=== PATIENT | female | born 1945 | race African-American/Black ===

== ENCOUNTER 2023-02-13 03:19 | Inpatient (IN) | payer MEDICARE, MEDICAID ==
[2023-02-13] MEDS ORDERED: Pantoprazole 40 MG VIAL ONE (03:50)
[2023-02-13 04:42] LABS: #Eosinphils 0.2 thou/uL (0.0-0.7); #Monocytes 0.6 thou/uL (0.11-0.59); #Neutrophils 3.1 thou/uL (1.40-6.50); %Basophils 0.3 % (0.0-1.0); %Eosinophils 3.3 % (0.0-10.0); %Lymphocytes 38.5 % (21.0-51.0); %Monocytes 9.1 % (0.0-10.0); %Neutrophils 48.6 % (42.0-75.0); Hemoglobin 9.1 g/dL (12.0-16.0); Mean Corpuscular HGB CONC 31.5 g/dL (32.0-36.0); Mean Corpuscular Hemoglobin 26.8 pg (27.0-31.0); Mean Corpuscular Volume 85.3 fl (78.0-98.0); Mean Platelet Volume 11.2 fL (7.4-10.4); Platelet Count 134 10x3/uL (130-400); Red Blood Cell (RBC) Count 3.39 mill/uL (4.20-5.40); White Blood Cell (WBC) Count 6.3 10x3/uL (4.8-10.8)
[2023-02-13 04:52] LABS: Prothrombin Time 13.5 sec (12.0-14.7)
[2023-02-13 05:06] LABS: ALT (SGPT) 20 U/L (8-55); AST (SGOT) 16 U/L (5-34); Albumin 3.7 g/dL (3.4-4.8); Alkaline Phosphatase 87 U/L (40-110); Anion Gap 19 mmol/L (10-20); BUN (Urea Nitrogen) 78 mg/dL (9.8-20.1); Bilirubin, Total 0.3 mg/dL (0.2-1.2); Calc. Creatinine Clearance 0 mL/min (70-130); Calcium 9.1 mg/dL (7.8-10.44); Carbon Dioxide 22 mmol/L (23-31); Chloride 100 mmol/L (98-107); Estimated GFR 9; Globulin 4.9 g/dL (2.4-3.5); Glucose 116 mg/dL (83-110); Potassium 5.6 mmol/L (3.5-5.1); Protein, Total 8.6 g/dL (5.8-8.1); Sodium 135 mmol/L (136-145)
[2023-02-13] MEDS ORDERED: Insulin Regular 300 UNITS/3 ML VIAL ONE (05:55)
[2023-02-13] MEDS ORDERED: Calcium Gluc 4.6 MEQ/10 ML (100 MG/ML) ONE (05:55)
[2023-02-13] MEDS ORDERED: Dextrose 50% Abboject 50 ML SYRINGE ONE (05:55)
[2023-02-13 08:52] LABS: HBSAg Index 0.19 S/CO (0-0.99); Hep B Surf Ag Non-Reactive S/CO (NonReactive)
[2023-02-13 08:57] LABS: HBSAB Concentration 756.56 mIU/mL; Hep B Surf AB Reactive (NonReactive)
[2023-02-13] MEDS ORDERED: Piperacillin/Tazobactam 2.25 GM in Sodium Chloride 0.9% 100 ML IVPB SCH ×2 (10:00→14:00)
[2023-02-13 11:01] LABS: #Eosinphils 0.1 thou/uL (0.0-0.7); #Monocytes 0.4 thou/uL (0.11-0.59); #Neutrophils 2.6 thou/uL (1.40-6.50); %Basophils 0.4 % (0.0-1.0); %Eosinophils 2.2 % (0.0-10.0); %Lymphocytes 41.2 % (21.0-51.0); %Neutrophils 47.8 % (42.0-75.0); Hemoglobin 6.6 g/dL (12.0-16.0); Mean Corpuscular HGB CONC 31.9 g/dL (32.0-36.0); Mean Corpuscular Hemoglobin 27.3 pg (27.0-31.0); Mean Corpuscular Volume 85.5 fl (78.0-98.0); Mean Platelet Volume 10.6 fL (7.4-10.4); Platelet Count 113 10x3/uL (130-400); RBC Distribution Width 15.9 % (11.5-14.5); Red Blood Cell (RBC) Count 2.42 mill/uL (4.20-5.40); White Blood Cell (WBC) Count 5.5 10x3/uL (4.8-10.8)
[2023-02-13] MEDS ORDERED: Albumin 25% 25 GM/100 ML BOT IVPB PRN (11:09)
[2023-02-13] MEDS ORDERED: Piperacillin/Tazobactam 3.375 GM in Sodium Chloride 0.9% 100 ML IVPB SCH (15:15)
[2023-02-13] MEDS ORDERED: Piperacillin/Tazobactam 3.375 GM VIAL ONE (15:35)
[2023-02-13 17:05] VITALS: BMI 28.3
[2023-02-13] MEDS: Acetaminophen 325 MG TAB PO PRN (17:37)
[2023-02-13 18:22] LABS: #Eosinphils 0.1 thou/uL (0.0-0.7); #Monocytes 0.5 thou/uL (0.11-0.59); #Neutrophils 3.1 thou/uL (1.40-6.50); %Basophils 0.4 % (0.0-1.0); %Eosinophils 1.4 % (0.0-10.0); %Lymphocytes 34.2 % (21.0-51.0); %Monocytes 8.4 % (0.0-10.0); %Neutrophils 55.4 % (42.0-75.0); Hemoglobin 6.6 g/dL (12.0-16.0); Mean Corpuscular HGB CONC 31.7 g/dL (32.0-36.0); Mean Corpuscular Volume 85.2 fl (78.0-98.0); Mean Platelet Volume 10.7 fL (7.4-10.4); Platelet Count 103 10x3/uL (130-400); RBC Distribution Width 15.9 % (11.5-14.5); Red Blood Cell (RBC) Count 2.44 mill/uL (4.20-5.40); White Blood Cell (WBC) Count 5.6 10x3/uL (4.8-10.8)
[2023-02-13] MEDS: Gabapentin 300 MG CAP PO SCH (21:23)
[2023-02-13] MEDS: hydrALAZINE 25 MG TAB PO SCH (21:23)
[2023-02-13] MEDS: Atorvastatin Calcium 20 MG TAB PO SCH (21:23)
[2023-02-13] MEDS: Piperacillin/Tazobactam 3.375 GM in Sodium Chloride 0.9% 100 ML IVPB SCH (21:24)
[2023-02-14 00:06] LABS: #Eosinphils 0.1 thou/uL (0.0-0.7); #Monocytes 0.7 thou/uL (0.11-0.59); #Neutrophils 2.5 thou/uL (1.40-6.50); %Basophils 0.6 % (0.0-1.0); %Eosinophils 2.4 % (0.0-10.0); %Lymphocytes 37.8 % (21.0-51.0); %Monocytes 12.2 % (0.0-10.0); %Neutrophils 46.8 % (42.0-75.0); Hemoglobin 6.4 g/dL (12.0-16.0); Mean Corpuscular HGB CONC 31.8 g/dL (32.0-36.0); Mean Corpuscular Volume 84.8 fl (78.0-98.0); Mean Platelet Volume 10.9 fL (7.4-10.4); RBC Distribution Width 15.9 % (11.5-14.5); Red Blood Cell (RBC) Count 2.37 mill/uL (4.20-5.40); White Blood Cell (WBC) Count 5.4 10x3/uL (4.8-10.8)
[2023-02-14 00:20] LABS: Platelet Count 108 10x3/uL (130-400)
[2023-02-14] MEDS: Piperacillin/Tazobactam 3.375 GM in Sodium Chloride 0.9% 100 ML IVPB SCH ×2 (09:08→21:29)
[2023-02-14] MEDS: Gabapentin 300 MG CAP PO SCH ×2 (09:08→21:30)
[2023-02-14 09:17] LABS: #Eosinphils 0.2 thou/uL (0.0-0.7); #Monocytes 0.6 thou/uL (0.11-0.59); #Neutrophils 2.6 thou/uL (1.40-6.50); %Basophils 0.6 % (0.0-1.0); %Eosinophils 3.6 % (0.0-10.0); %Lymphocytes 35.5 % (21.0-51.0); %Monocytes 11.6 % (0.0-10.0); %Neutrophils 48.3 % (42.0-75.0); Hemoglobin 6.1 g/dL (12.0-16.0); Mean Corpuscular HGB CONC 31.6 g/dL (32.0-36.0); Mean Corpuscular Hemoglobin 27.9 pg (27.0-31.0); Mean Platelet Volume 10.9 fL (7.4-10.4); Platelet Count 121 10x3/uL (130-400); RBC Distribution Width 16.4 % (11.5-14.5); Red Blood Cell (RBC) Count 2.19 mill/uL (4.20-5.40); White Blood Cell (WBC) Count 5.3 10x3/uL (4.8-10.8)
[2023-02-14] MEDS: hydrALAZINE 25 MG TAB PO SCH ×2 (09:19→21:29)
[2023-02-14 09:38] LABS: Anion Gap 15 mmol/L (10-20); BUN (Urea Nitrogen) 32 mg/dL (9.8-20.1); Calc. Creatinine Clearance 16 mL/min (70-130); Calcium 8.8 mg/dL (7.8-10.44); Carbon Dioxide 26 mmol/L (23-31); Chloride 99 mmol/L (98-107); Estimated GFR 15; Glucose 172 mg/dL (83-110); Potassium 4.4 mmol/L (3.5-5.1); Sodium 136 mmol/L (136-145)
[2023-02-14 09:49] LABS: Mean Corpuscular Volume 88.1 fl (78.0-98.0)
[2023-02-14] MEDS ORDERED: Pantoprazole 40 MG VIAL IVP SCH (13:15)
[2023-02-14 13:44] LABS: #Eosinphils 0.2 thou/uL (0.0-0.7); #Monocytes 0.8 thou/uL (0.11-0.59); #Neutrophils 3.6 thou/uL (1.40-6.50); %Basophils 0.3 % (0.0-1.0); %Eosinophils 1.9 % (0.0-10.0); %Lymphocytes 41.7 % (21.0-51.0); %Monocytes 10.2 % (0.0-10.0); %Neutrophils 45.8 % (42.0-75.0); Hemoglobin 6.3 g/dL (12.0-16.0); Mean Corpuscular HGB CONC 31.8 g/dL (32.0-36.0); Mean Corpuscular Hemoglobin 27.8 pg (27.0-31.0); Mean Corpuscular Volume 87.2 fl (78.0-98.0); Mean Platelet Volume 11.5 fL (7.4-10.4); Platelet Count 119 10x3/uL (130-400); RBC Distribution Width 16.1 % (11.5-14.5); Red Blood Cell (RBC) Count 2.27 mill/uL (4.20-5.40); White Blood Cell (WBC) Count 7.8 10x3/uL (4.8-10.8)
[2023-02-14 15:15] LABS: Actual Bicarbonate (HCO3a) 21.7 mEq/L (22-28); Base Excess (BEa) -2.5 mEq/L (-2.0 to +3.0); CO2 Tension 34.2 mmHg (35.0-45.0); Calcium, Ionized (arterial) 1.04 mmol/L (1.12-1.30); Carboxyhemoglobin (COHb) 1.6 gm% (0.0-3.0); Hematocrit-ABG 19 % (36.0-47.0); Hemoglobin (Hb) 6.6 g/dL (12.0-16.0); Potassium - ABG Lab 4.26 mmol/L (3.70-5.30); pH, Arterial 7.421 (7.35-7.45)
[2023-02-14 15:17] LABS: Puncture Site RRA
[2023-02-14] MEDS: Mometasone Furoate 30 PUFF 220 MCG INH SCH (18:54)
[2023-02-14] MEDS ORDERED: GoLYTELY 4,000 ml Bottle PO SCH (20:30)
[2023-02-14] MEDS ORDERED: Gabapentin 300 MG CAP PO SCH (21:00)
[2023-02-14] MEDS: Atorvastatin Calcium 20 MG TAB PO SCH (21:28)
[2023-02-14] MEDS: Pantoprazole 40 MG VIAL IVP SCH (21:29)
[2023-02-15 06:14] LABS: Hemoglobin 8.8 g/dL (12.0-16.0); Mean Corpuscular HGB CONC 34.4 g/dL (32.0-36.0); Mean Corpuscular Hemoglobin 28.9 pg (27.0-31.0); Mean Platelet Volume 11.2 fL (7.4-10.4); RBC Distribution Width 15.2 % (11.5-14.5); Red Blood Cell (RBC) Count 3.04 mill/uL (4.20-5.40); White Blood Cell (WBC) Count 7.6 10x3/uL (4.8-10.8)
[2023-02-15 06:17] LABS: Platelet Count 89 10x3/uL (130-400)
[2023-02-15 06:18] LABS: Mean Corpuscular Volume 84.2 fl (78.0-98.0)
[2023-02-15 07:03] LABS: Anion Gap 20 mmol/L (10-20); BUN (Urea Nitrogen) 35 mg/dL (9.8-20.1); Calc. Creatinine Clearance 12 mL/min (70-130); Calcium 8.4 mg/dL (7.8-10.44); Carbon Dioxide 22 mmol/L (23-31); Chloride 101 mmol/L (98-107); Estimated GFR 12; Glucose 106 mg/dL (83-110); Sodium 139 mmol/L (136-145)
[2023-02-15] MEDS ORDERED: Midazolam HCl 2 mg/2 ml Vial ONE (08:28)
[2023-02-15] MEDS ORDERED: PROPOFOL 200 MG/20 ML VIAL ONE (08:37)
[2023-02-15] MEDS ORDERED: Ketamine 50 MG/ML (10ML VIAL) ONE (08:42)
[2023-02-15] MEDS ORDERED: Glucagon 1 MG/ML KIT IM PRN (10:36)
[2023-02-15] MEDS ORDERED: Dextrose 50% Abboject 50 ML SYRINGE SLOW IVP PRN (10:36)
[2023-02-15] MEDS ORDERED: Dextrose 5% in Water 1,000 ML IV PRN (10:36)
[2023-02-15] MEDS ORDERED: Heparin 10,000 UNITS/ 10 ML VIAL ONE (10:54)
[2023-02-15] MEDS: Pantoprazole 40 MG VIAL IVP SCH ×2 (11:03→20:50)
[2023-02-15 11:04] LABS: Magnesium 1.8 mg/dL (1.6-2.6)
[2023-02-15] MEDS: Acetaminophen 325 MG TAB PO PRN ×2 (13:23→19:48)
[2023-02-15 14:23] LABS: Hemoglobin 8.9 g/dL (12.0-16.0)
[2023-02-15] MEDS: Gabapentin 300 MG CAP PO SCH ×2 (15:00→20:50)
[2023-02-15] MEDS: Piperacillin/Tazobactam 3.375 GM in Sodium Chloride 0.9% 100 ML IVPB SCH ×2 (15:00→20:50)
[2023-02-15] MEDS: hydrALAZINE 25 MG TAB PO SCH ×2 (15:00→20:50)
[2023-02-15] MEDS ORDERED: Sodium Chloride 0.9% 1,000 ML IV SCH (15:30)
[2023-02-15] MEDS: HumaLOG 300 UNITS/3 ML VIAL SC PRN ×2 (16:58→21:32)
[2023-02-15] MEDS: Mometasone Furoate 30 PUFF 220 MCG INH SCH (18:45)
[2023-02-15] MEDS: Atorvastatin Calcium 20 MG TAB PO SCH (20:50)
[2023-02-16] MEDS: Acetaminophen 325 MG TAB PO PRN (03:19)
[2023-02-16 04:38] LABS: Hemoglobin 8.4 g/dL (12.0-16.0); RBC Distribution Width 15.9 % (11.5-14.5)
[2023-02-16 04:40] LABS: Mean Corpuscular HGB CONC 33.7 g/dL (32.0-36.0); Mean Corpuscular Hemoglobin 28.6 pg (27.0-31.0); Mean Corpuscular Volume 84.7 fl (78.0-98.0); Mean Platelet Volume 10.8 fL (7.4-10.4); Platelet Count 106 10x3/uL (130-400); Red Blood Cell (RBC) Count 2.94 mill/uL (4.20-5.40); White Blood Cell (WBC) Count 10.3 10x3/uL (4.8-10.8)
[2023-02-16 05:11] LABS: Anion Gap 13 mmol/L (10-20); BUN (Urea Nitrogen) 15 mg/dL (9.8-20.1); Calc. Creatinine Clearance 18 mL/min (70-130); Carbon Dioxide 26 mmol/L (23-31); Chloride 101 mmol/L (98-107); Potassium 3.9 mmol/L (3.5-5.1); Sodium 136 mmol/L (136-145)
[2023-02-16 05:12] LABS: Calcium 8.6 mg/dL (7.8-10.44); Estimated GFR 20; Glucose 128 mg/dL (83-110)
[2023-02-16] MEDS: Piperacillin/Tazobactam 3.375 GM in Sodium Chloride 0.9% 100 ML IVPB SCH ×2 (09:13→21:28)
[2023-02-16] MEDS: Pantoprazole 40 MG VIAL IVP SCH ×2 (09:14→21:28)
[2023-02-16] MEDS: Gabapentin 300 MG CAP PO SCH ×2 (09:14→21:27)
[2023-02-16] MEDS: hydrALAZINE 25 MG TAB PO SCH ×2 (09:14→21:28)
[2023-02-16] MEDS ORDERED: EPOETIN ALFA-EPBX (ESRD) 10,000 UNITS/ML VIAL SC SCH (12:00)
[2023-02-16] MEDS: HumaLOG 300 UNITS/3 ML VIAL SC PRN (16:25)
[2023-02-16 16:56] LABS: Hemoglobin 7.4 g/dL (12.0-16.0)
[2023-02-16] MEDS: Mometasone Furoate 30 PUFF 220 MCG INH SCH (18:49)
[2023-02-16] MEDS: Atorvastatin Calcium 20 MG TAB PO SCH (21:28)
[2023-02-17 04:34] LABS: White Blood Cell (WBC) Count 6.9 10x3/uL (4.8-10.8)
[2023-02-17 04:35] LABS: Hemoglobin 7.4 g/dL (12.0-16.0); Mean Corpuscular HGB CONC 33.2 g/dL (32.0-36.0); Mean Corpuscular Volume 87.5 fl (78.0-98.0); Mean Platelet Volume 10.6 fL (7.4-10.4); Platelet Count 117 10x3/uL (130-400); RBC Distribution Width 16.2 % (11.5-14.5); Red Blood Cell (RBC) Count 2.55 mill/uL (4.20-5.40)
[2023-02-17] MEDS: hydrALAZINE 25 MG TAB PO SCH (09:33)
[2023-02-17] MEDS: Gabapentin 300 MG CAP PO SCH (09:33)
[2023-02-17] MEDS: Pantoprazole 40 MG VIAL IVP SCH (09:34)
[2023-02-17] MEDS: Piperacillin/Tazobactam 3.375 GM in Sodium Chloride 0.9% 100 ML IVPB SCH (09:34)
[2023-02-17 11:28] VITALS: TEMP 97.3
[2023-02-17 13:59] VITALS: BP 128/99
[2023-02-20] MEDS ORDERED: Heparin 10,000 UNITS/ 10 ML VIAL ONE (10:02)
== END 2023-02-17 14:05 | DRG 377 ==
LOC: ERS 03:19 → ERHOLD 06:30 → 2NO 16:41 → CCU 02-14 14:59 → 2NO 02-15 20:20
PROVIDERS: ADMIT Internal Medicine; ATTEND Internal Medicine
PROC: 4A033R1 Measurement of Arterial Saturation, Peripheral, Percutaneous Approach (ICD-10-PCS; 2023-02-14)
PROC: 30233N1 Transfusion of Nonautologous Red Blood Cells into Peripheral Vein, Percutaneous Approach (ICD-10-PCS; 2023-02-14)
PROC: 0DJ08ZZ Inspection of Upper Intestinal Tract, Via Natural or Artificial Opening Endoscopic (ICD-10-PCS; principal; 2023-02-15)
PROC: 0DJD8ZZ Inspection of Lower Intestinal Tract, Via Natural or Artificial Opening Endoscopic (ICD-10-PCS; 2023-02-15)
PROC: 5A1D70Z Performance of Urinary Filtration, Intermittent, Less than 6 Hours Per Day (ICD-10-PCS; 2023-02-15)
DX: K57.31 Diverticulosis of large intestine without perforation or abscess with bleeding (principal); N18.6 End stage renal disease; D62 Acute posthemorrhagic anemia; E87.20 Acidosis, unspecified; I13.2 Hypertensive heart and chronic kidney disease with heart failure and with stage 5 chronic kidney disease, or end stage renal disease; K52.9 Noninfective gastroenteritis and colitis, unspecified; K57.33 Diverticulitis of large intestine without perforation or abscess with bleeding; E11.51 Type 2 diabetes mellitus with diabetic peripheral angiopathy without gangrene; E11.22 Type 2 diabetes mellitus with diabetic chronic kidney disease; I50.9 Heart failure, unspecified; F03.90 Unspecified dementia, unspecified severity, without behavioral disturbance, psychotic disturbance, mood disturbance, and anxiety; E03.9 Hypothyroidism, unspecified; K21.9 Gastro-esophageal reflux disease without esophagitis; M81.0 Age-related osteoporosis without current pathological fracture; E87.5 Hyperkalemia; I25.10 Atherosclerotic heart disease of native coronary artery without angina pectoris; F41.9 Anxiety disorder, unspecified; E78.5 Hyperlipidemia, unspecified; D63.1 Anemia in chronic kidney disease; K44.9 Diaphragmatic hernia without obstruction or gangrene; K29.70 Gastritis, unspecified, without bleeding; I44.1 Atrioventricular block, second degree; Z98.890 Other specified postprocedural states; Z89.512 Acquired absence of left leg below knee; Z98.42 Cataract extraction status, left eye; Z98.41 Cataract extraction status, right eye; Z88.1 Allergy status to other antibiotic agents; Z99.2 Dependence on renal dialysis
CPT/HCPCS: 36415; 36416; 36430; 36600; 74176; 80048; 80053; 82805; 83605; 83735; 84443; 84484; 85025; 85027; 85610; 85730; 86706; 86850; 86900; 86901; 87340; 90935; 93005; 93010; 93306; 96361; 96374; 96375; C9113; G0257; J0612; J1644; J1815; J2250; J2543; J2704; J3490; J7050; J7999; P9016; Q5105

== ENCOUNTER 2023-02-18 20:07 | Inpatient (IN) | payer MEDICARE, MEDICAID ==
[2023-02-18] MEDS ORDERED: NOREPINEPHRINE 8 MG/250 ML-D5W 250 ML ONE (20:15)
[2023-02-18] MEDS ORDERED: Octreotide Acetate 500 MCG/ML VIAL ONE (20:16)
[2023-02-18] MEDS ORDERED: Pantoprazole 40 MG VIAL ONE (20:20)
[2023-02-18 20:26] LABS: #Eosinphils 0.1 thou/uL (0.0-0.7); #Monocytes 0.8 thou/uL (0.11-0.59); #Neutrophils 5.7 thou/uL (1.40-6.50); %Basophils 0.2 % (0.0-1.0); %Eosinophils 1.5 % (0.0-10.0); %Monocytes 9.3 % (0.0-10.0); %Neutrophils 65.3 % (42.0-75.0); Hemoglobin 9.6 g/dL (12.0-16.0); Mean Corpuscular HGB CONC 33.6 g/dL (32.0-36.0); Mean Corpuscular Volume 89.4 fl (78.0-98.0); Mean Platelet Volume 10.4 fL (7.4-10.4); Platelet Count 119 10x3/uL (130-400); RBC Distribution Width 14.9 % (11.5-14.5); White Blood Cell (WBC) Count 8.8 10x3/uL (4.8-10.8)
[2023-02-18] MEDS ORDERED: Octreotide Acetate 1,250 MCG in Sodium Chloride 0.9% 250 ML 250 ML IVPB SCH ×2 (20:30→23:45)
[2023-02-18] MEDS ORDERED: Tranexamic Acid 1,000 MG/10 ML VIAL ONE (20:48)
[2023-02-18 20:53] LABS: ALT (SGPT) 11 U/L (8-55); AST (SGOT) 23 U/L (5-34); Albumin 3.1 g/dL (3.4-4.8); Alkaline Phosphatase 56 U/L (40-110); Anion Gap 16 mmol/L (10-20); BUN (Urea Nitrogen) 21 mg/dL (9.8-20.1); Bilirubin, Total 0.5 mg/dL (0.2-1.2); Calc. Creatinine Clearance 0 mL/min (70-130); Calcium 8.3 mg/dL (7.8-10.44); Carbon Dioxide 21 mmol/L (23-31); Chloride 104 mmol/L (98-107); Estimated GFR 24; Globulin 3.5 g/dL (2.4-3.5); Glucose 144 mg/dL (83-110); Potassium 3.7 mmol/L (3.5-5.1); Protein, Total 6.6 g/dL (5.8-8.1); Sodium 137 mmol/L (136-145)
[2023-02-18 20:59] LABS: INR-International Normal Ratio 1.1; PTT 27.2 sec (22.9-36.1); Prothrombin Time 14.5 sec (12.0-14.7)
[2023-02-18 21:37] LABS: CKMB 20.1 ng/mL (0-6.6)
[2023-02-18] MEDS ORDERED: NOREPINEPHRINE 8 MG/250 ML-D5W 250 ML IVPB SCH (22:45)
[2023-02-18] MEDS ORDERED: Vasopressin 20 UNITS in Sodium Chloride 0.9% 50 ML IV SCH (22:45)
[2023-02-18] MEDS ORDERED: Glucagon 1 MG/ML KIT IM PRN (22:49)
[2023-02-18] MEDS ORDERED: Electrolyte Replacement Protocol 1 EACH FS SCH (22:49)
[2023-02-18] MEDS ORDERED: Dextrose 50% Abboject 50 ML SYRINGE SLOW IVP PRN (22:49)
[2023-02-18] MEDS ORDERED: Dextrose 5% in Water 1,000 ML IV PRN (22:49)
[2023-02-18] MEDS ORDERED: Lactated Ringer's 1,000 ML IV SCH (23:00)
[2023-02-18 23:37] LABS: Hemoglobin 7.7 g/dL (12.0-16.0)
[2023-02-18] MEDS ORDERED: Acetaminophen 325 MG TAB PO PRN (23:59)
[2023-02-18] MEDS ORDERED: Acetaminophen 650 MG Suppository PR PRN (23:59)
[2023-02-19 00:10] LABS: Critical Call Chem Troponin I RESULT DECREASING; Troponin I 6.138 ng/mL (< 0.028)
[2023-02-19] MEDS: Ondansetron PF 4 MG/2 ML Vial IVP PRN ×2 (01:00→18:23)
[2023-02-19 01:05] LABS: Lactic Acid 1.5 mmol/L (0.5-2.2)
[2023-02-19 01:38] LABS: Hemoglobin 6.9 g/dL (12.0-16.0)
[2023-02-19] MEDS ORDERED: fentaNYL 50 mcg/mL 1 mL Vial ONE (01:41)
[2023-02-19] MEDS ORDERED: EPINEPHrine 1 MG/10 ML Abboject SYRINGE ONE ×2 (02:14→02:16)
[2023-02-19] MEDS ORDERED: EPINEPHrine 1 MG/ML AMP ONE (02:14)
[2023-02-19] MEDS ORDERED: PHENYLEPHRINE-NS 100 MCG/ML 10 ML SYRINGE ONE (02:16)
[2023-02-19] MEDS ORDERED: Calcium Chloride 1 GM/10 ML Abboject SYRINGE ONE (02:16)
[2023-02-19] MEDS ORDERED: Lidocaine 1% PF 5 ML VIAL ONE (02:16)
[2023-02-19] MEDS ORDERED: PROPOFOL 200 MG/20 ML VIAL ONE (02:16)
[2023-02-19 04:16] LABS: #Eosinphils 0.1 thou/uL (0.0-0.7); #Monocytes 0.7 thou/uL (0.11-0.59); #Neutrophils 4.4 thou/uL (1.40-6.50); %Basophils 0.3 % (0.0-1.0); %Eosinophils 1.1 % (0.0-10.0); %Lymphocytes 15.5 % (21.0-51.0); %Monocytes 11.2 % (0.0-10.0); %Neutrophils 70.9 % (42.0-75.0); Mean Corpuscular HGB CONC 33.8 g/dL (32.0-36.0); Mean Corpuscular Hemoglobin 29.3 pg (27.0-31.0); Mean Platelet Volume 10.1 fL (7.4-10.4); RBC Distribution Width 14.8 % (11.5-14.5); Red Blood Cell (RBC) Count 4.98 mill/uL (4.20-5.40); White Blood Cell (WBC) Count 6.2 10x3/uL (4.8-10.8)
[2023-02-19 04:22] LABS: Platelet Count 70 10x3/uL (130-400)
[2023-02-19 04:24] LABS: Hemoglobin 14.6 g/dL (12.0-16.0); Mean Corpuscular Volume 86.7 fl (78.0-98.0)
[2023-02-19 04:53] LABS: Critical Call Chem Troponin I RESULT DECREASING; Troponin I 3.569 ng/mL (< 0.028)
[2023-02-19 04:53] LABS: Actual Bicarbonate (HCO3v) 22.4 mEq/L (22-28); Base Excess -4.7 mEq/L (-2.0 to +3.0); Chloride (VBG) 103 mmol/L (98-106); Hematocrit-VBG 48 % (36.0-47.0); Hemoglobin (Hb) 16.2 g/dL (11.7-16.1); Potassium (VBG) 4.03 mmol/L (3.70-5.30); Sodium 139.9 mmol/L (133-146); pH (venous) 7.279 (7.32-7.43)
[2023-02-19 05:16] LABS: Platelet Count 74 10x3/uL (130-400)
[2023-02-19 05:21] LABS: Fibrinogen 342 mg/dL (253-463); INR-International Normal Ratio 1.1; Prothrombin Time 14.1 sec (12.0-14.7)
[2023-02-19 05:22] LABS: D-Dimer Test 0.76 *mcg/mL (0.27-0.43); PTT 31.9 sec (22.9-36.1)
[2023-02-19 05:54] LABS: ALT (SGPT) 64 U/L (8-55); AST (SGOT) 73 U/L (5-34); Alkaline Phosphatase 65 U/L (40-110); Anion Gap 18 mmol/L (10-20); BUN (Urea Nitrogen) 21 mg/dL (9.8-20.1); Bilirubin, Total 2.7 mg/dL (0.2-1.2); Calc. Creatinine Clearance 25 mL/min (70-130); Carbon Dioxide 23 mmol/L (23-31); Chloride 104 mmol/L (98-107); Estimated GFR 25; Globulin 3.2 g/dL (2.4-3.5); Glucose 227 mg/dL (83-110); Potassium 4.1 mmol/L (3.5-5.1); Protein, Total 7.2 g/dL (5.8-8.1); Sodium 141 mmol/L (136-145)
[2023-02-19] MEDS ORDERED: EPOETIN ALFA-EPBX (ESRD) 10,000 UNITS/ML VIAL SC SCH (09:00)
[2023-02-19] MEDS: Loratadine 10 MG TAB PO SCH (10:20)
[2023-02-19] MEDS: Gabapentin 300 MG CAP PO SCH ×2 (10:21→21:50)
[2023-02-19] MEDS: Pantoprazole 40 MG VIAL IVP SCH ×2 (10:22→21:52)
[2023-02-19] MEDS: Atorvastatin Calcium 40 MG TAB PO SCH (10:22)
[2023-02-19 10:42] LABS: Hemoglobin 16.1 g/dL (12.0-16.0)
[2023-02-19] MEDS ORDERED: Furosemide 20 MG/2 ML VIAL SLOW IVP SCH (15:30)
[2023-02-19] MEDS ORDERED: Labetalol HCl 100 MG/20 ML VIAL SLOW IVP PRN (17:47)
[2023-02-19] MEDS ORDERED: hydrALAZINE 20 MG/ML VIAL SLOW IVP PRN (17:47)
[2023-02-19] MEDS: Carvedilol 25 MG TAB PO SCH (21:50)
[2023-02-19] MEDS: hydrALAZINE 25 MG TAB PO SCH (21:51)
[2023-02-20 05:12] LABS: #Eosinphils 0.1 thou/uL (0.0-0.7); #Monocytes 1.2 thou/uL (0.11-0.59); #Neutrophils 5.7 thou/uL (1.40-6.50); %Basophils 0.2 % (0.0-1.0); %Eosinophils 1.4 % (0.0-10.0); %Lymphocytes 14.9 % (21.0-51.0); %Monocytes 14.3 % (0.0-10.0); %Neutrophils 68.6 % (42.0-75.0); Hemoglobin 14.6 g/dL (12.0-16.0); Mean Corpuscular HGB CONC 35.5 g/dL (32.0-36.0); Mean Corpuscular Hemoglobin 29.9 pg (27.0-31.0); Mean Corpuscular Volume 84.2 fl (78.0-98.0); Mean Platelet Volume 10.4 fL (7.4-10.4); RBC Distribution Width 15.9 % (11.5-14.5); Red Blood Cell (RBC) Count 4.88 mill/uL (4.20-5.40); White Blood Cell (WBC) Count 8.3 10x3/uL (4.8-10.8)
[2023-02-20 05:28] LABS: Platelet Count 83 10x3/uL (130-400)
[2023-02-20 05:31] LABS: Anion Gap 12 mmol/L (10-20); BUN (Urea Nitrogen) 21 mg/dL (9.8-20.1); Calc. Creatinine Clearance 21 mL/min (70-130); Calcium 9.2 mg/dL (7.8-10.44); Carbon Dioxide 29 mmol/L (23-31); Chloride 102 mmol/L (98-107); Estimated GFR 20; Glucose 152 mg/dL (83-110); Potassium 3.4 mmol/L (3.5-5.1); Sodium 140 mmol/L (136-145)
[2023-02-20] MEDS ORDERED: Potassium Bicarbonate/Cit Ac 20 MEQ TAB PO SCH (08:00)
[2023-02-20] MEDS: Gabapentin 300 MG CAP PO SCH ×2 (08:27→20:11)
[2023-02-20] MEDS: Pantoprazole 40 MG VIAL IVP SCH ×2 (08:27→20:12)
[2023-02-20] MEDS: Amlodipine 10 MG TAB PO SCH (08:28)
[2023-02-20] MEDS: Loratadine 10 MG TAB PO SCH (08:29)
[2023-02-20] MEDS: Atorvastatin Calcium 40 MG TAB PO SCH (08:29)
[2023-02-20] MEDS: Carvedilol 25 MG TAB PO SCH ×2 (08:29→20:11)
[2023-02-20] MEDS: hydrALAZINE 25 MG TAB PO SCH ×2 (08:29→20:12)
[2023-02-20] MEDS: Ondansetron PF 4 MG/2 ML Vial IVP PRN (18:37)
[2023-02-21 04:20] LABS: #Eosinphils 0.3 thou/uL (0.0-0.7); #Monocytes 1.2 thou/uL (0.11-0.59); #Neutrophils 5.4 thou/uL (1.40-6.50); %Basophils 0.2 % (0.0-1.0); %Eosinophils 3.2 % (0.0-10.0); %Lymphocytes 17.5 % (21.0-51.0); %Monocytes 14.2 % (0.0-10.0); %Neutrophils 64.3 % (42.0-75.0); Hemoglobin 14.2 g/dL (12.0-16.0); Mean Corpuscular HGB CONC 34.8 g/dL (32.0-36.0); Mean Corpuscular Volume 86.1 fl (78.0-98.0); Mean Platelet Volume 10.7 fL (7.4-10.4); Red Blood Cell (RBC) Count 4.74 mill/uL (4.20-5.40); White Blood Cell (WBC) Count 8.5 10x3/uL (4.8-10.8)
[2023-02-21 04:27] LABS: Platelet Count 87 10x3/uL (130-400)
[2023-02-21 04:39] LABS: Anion Gap 13 mmol/L (10-20); BUN (Urea Nitrogen) 19 mg/dL (9.8-20.1); Calc. Creatinine Clearance 22 mL/min (70-130); Carbon Dioxide 30 mmol/L (23-31); Chloride 97 mmol/L (98-107); Estimated GFR 23; Glucose 121 mg/dL (83-110); Potassium 3.5 mmol/L (3.5-5.1); Sodium 136 mmol/L (136-145)
[2023-02-21] MEDS ORDERED: Calcium Carbonate 500 MG ChewTAB PO PRN (04:46)
[2023-02-21 08:21] VITALS: BMI 25.6
[2023-02-21] MEDS: Carvedilol 25 MG TAB PO SCH ×2 (09:02→19:47)
[2023-02-21] MEDS: Gabapentin 300 MG CAP PO SCH ×2 (09:02→19:47)
[2023-02-21] MEDS: Pantoprazole 40 MG VIAL IVP SCH ×2 (09:03→19:47)
[2023-02-21] MEDS: Amlodipine 10 MG TAB PO SCH (09:03)
[2023-02-21] MEDS: hydrALAZINE 25 MG TAB PO SCH ×2 (09:03→19:46)
[2023-02-21] MEDS: Loratadine 10 MG TAB PO SCH (09:03)
[2023-02-21] MEDS: Atorvastatin Calcium 40 MG TAB PO SCH (09:04)
[2023-02-21 19:47] VITALS: BP 145/89
[2023-02-21 20:04] VITALS: TEMP 98.2
== END 2023-02-21 20:12 | DRG 377 ==
LOC: ERS 20:07 → CCU 20:51 → IMCU/EMU 02-21 01:43
PROVIDERS: ADMIT Student in an Organized Health Care Education/Training Program; ATTEND Internal Medicine
PROC: 30233N1 Transfusion of Nonautologous Red Blood Cells into Peripheral Vein, Percutaneous Approach (ICD-10-PCS; 2023-02-18)
PROC: 3E033XZ Introduction of Vasopressor into Peripheral Vein, Percutaneous Approach (ICD-10-PCS; 2023-02-18)
PROC: 0DJD8ZZ Inspection of Lower Intestinal Tract, Via Natural or Artificial Opening Endoscopic (ICD-10-PCS; principal; 2023-02-19)
PROC: 30233L1 Transfusion of Nonautologous Fresh Plasma into Peripheral Vein, Percutaneous Approach (ICD-10-PCS; 2023-02-19)
PROC: 30233M1 Transfusion of Nonautologous Plasma Cryoprecipitate into Peripheral Vein, Percutaneous Approach (ICD-10-PCS; 2023-02-19)
PROC: 30233K1 Transfusion of Nonautologous Frozen Plasma into Peripheral Vein, Percutaneous Approach (ICD-10-PCS; 2023-02-19)
PROC: 30233R1 Transfusion of Nonautologous Platelets into Peripheral Vein, Percutaneous Approach (ICD-10-PCS; 2023-02-19)
PROC: 4A043R1 Measurement of Venous Saturation, Peripheral, Percutaneous Approach (ICD-10-PCS; 2023-02-19)
PROC: 5A0935A Assistance with Respiratory Ventilation, Less than 24 Consecutive Hours, High Flow/Velocity Cannula (ICD-10-PCS; 2023-02-19)
PROC: 0W3P8ZZ Control Bleeding in Gastrointestinal Tract, Via Natural or Artificial Opening Endoscopic (ICD-10-PCS; 2023-02-19)
DX: K57.31 Diverticulosis of large intestine without perforation or abscess with bleeding (principal); I21.A1 Myocardial infarction type 2; J96.01 Acute respiratory failure with hypoxia; N18.6 End stage renal disease; R57.8 Other shock; I13.2 Hypertensive heart and chronic kidney disease with heart failure and with stage 5 chronic kidney disease, or end stage renal disease; D62 Acute posthemorrhagic anemia; I50.32 Chronic diastolic (congestive) heart failure; J81.1 Chronic pulmonary edema; G93.49 Other encephalopathy; I25.10 Atherosclerotic heart disease of native coronary artery without angina pectoris; D63.1 Anemia in chronic kidney disease; K76.89 Other specified diseases of liver; I73.9 Peripheral vascular disease, unspecified; G30.1 Alzheimer's disease with late onset; F02.80 Dementia in other diseases classified elsewhere, unspecified severity, without behavioral disturbance, psychotic disturbance, mood disturbance, and anxiety; K44.9 Diaphragmatic hernia without obstruction or gangrene; I44.1 Atrioventricular block, second degree; K21.9 Gastro-esophageal reflux disease without esophagitis; E87.5 Hyperkalemia; E87.6 Hypokalemia; I95.9 Hypotension, unspecified; Z98.49 Cataract extraction status, unspecified eye; Z89.512 Acquired absence of left leg below knee; Z99.2 Dependence on renal dialysis; Z88.1 Allergy status to other antibiotic agents; Z79.82 Long term (current) use of aspirin; Z79.899 Other long term (current) drug therapy
CPT/HCPCS: 36415; 36416; 36430; 71045; 78278; 80048; 80053; 82553; 82805; 83605; 83880; 84484; 85025; 85049; 85300; 85362; 85379; 85384; 85610; 85730; 86850; 86900; 86901; 90935; 93005; 96365; 96366; 96368; 96375; A9560; C9113; G0257; J0171; J0360; J1644; J1940; J2354; J2405; J2704; J3010; J7050; J7120; P9012; P9016; P9035; P9048; P9059